=== PATIENT | male | born 1985 | race Caucasian/White ===

== ENCOUNTER 2020-05-16 16:51 | Emergency (ER) | payer SELFPAY ==
[2020-05-16 16:52] VITALS: BP 140/71; PULSE 95; RESP 17; TEMP 36.2; O2SAT 99; BMI 29.0
--- NOTE | 2020-05-16 17:42 | CT_ITS ---
STUDY: CT ABDOMEN AND PELVIS WITHOUT CONTRAST REASON FOR EXAM: Male, 34 years old. Left flank pain x 3 days, testicular pain. RADIATION DOSAGE (If Supplied By Facility): CTDIvol = ( 8.10 ) mGy, DLP = ( 475.58 ) mGycm TECHNIQUE: Transaxial images were obtained from the dome of the diaphragm to the symphysis pubis without oral contrast, and without intravenous contrast. Sagittal and coronal images were reconstructed. Individualized dose optimization techniques were used for this CT. COMPARISON: None. FINDINGS: The visualized lung bases are unremarkable. Normal liver. No intrahepatic biliary duct dilatation or liver mass. Normal gallbladder and extrahepatic biliary system. Normal spleen. Normal pancreas. Normal bilateral adrenal glands. Normal right kidney. Mild left hydronephrosis and hydroureter are present with a 4 mm stone seen in the proximal one third aspect of the left ureter and the mid abdominal region. No additional radiopaque stones are seen in either kidney. Normal visualized stomach. Normal small intestine. Normal colon. No bowel dilatation or obstruction. No free air or free fluid. The appendix is visualized and appears normal. Normal abdominal aorta. Normal inferior vena cava. Normal retroperitoneum. Normal urinary bladder. Normal abdominal wall. Normal osseous structures. CT/Abdomen/Pelvis without Cont IMPRESSION: 1. Mild left hydronephrosis and hydroureter are present with a 4 mm stone seen in the proximal one third aspect of the left ureter and the mid abdominal region. No additional radiopaque stones are seen in either kidney. Electronically Signed: Mat Aaron MD at 18:32 EST , Service support ,
--- NOTE | 2020-05-16 17:42 | ED.VIS.GI ---
History of Present Illness Chief Complaint: Flank Pain Informant: Patient - Abdominal Pain/Flank Pain Onset: Days - 3 Context: Sudden Onset Timing: Continuous, Waxes and wanes Quality: Aching Location: Left Flank Current Severity: Moderate Maximum Severity: Severe Worsened by: Nothing Relieved by: Nothing - Nausea/Vomiting/Emesis GI Symptom: Nausea. Negative for: Vomiting - Diarrhea/Melena/Hematochezia GI Symptom: Negative for: Diarrhea, Melena, Hematochezia Associated Symptoms: Negative for: Dysuria, Frequency, Hematuria, Urgency Narrative: Patient states 3 days ago started having mild to moderate pain in his testicles. That went away and now he has just been having pain in his left low back. No abdominal pain. No urinary symptoms. Some nausea, no vomiting. No fevers or chills. Nonpleuritic, no coughing or shortness of breath. Prior similar symptoms: Yes - But never diagnosed Recent Illness/Hospitalization: No Past Medical History - Allergies and Home Meds Allergies/Adverse Reactions: Allergies No Known Allergies Allergy (Verified 05/16/20 16:52) Primary Care Physician: Care Physician,No Primary [Primary Care Provider] - Past Medical History: None Surgical History: no surgical history Smoking Status: Current every day smoker Review of Systems General: Denies: Chills, Fever, Sweats Eyes: Denies: Visual changes - bilaterally, Diplopia ENT: Denies: Rhinorrhea, Sore throat Cardiovascular: Denies: Chest pain, Palpitations Respiratory: Denies: Dyspnea, Cough, Dyspnea on exertion Gastrointestinal: Reports: Nausea. Denies: Abdominal pain, Vomiting, Diarrhea, Melena, Hematochezia Genitourinary: Denies: Dysuria, Hematuria, Frequency Musculoskeletal: Reports: Back pain. Denies: Myalgias, Extremity Pain Skin: Denies: Rash, Wounds Neurological: Denies: Headache, Weakness, Numbness Physical Exam Vital Signs/Narrative: Vital Signs Temp Pulse Resp BP Pulse Ox 05/16/20 16:52 97.2 F L 95 17 140/71 H 99 Inital Vital Signs reviewed: Yes General: Well nourished, Well developed, No Acute Distress Head: Normocephalic, Atraumatic Eyes: Perrl, EOMI ENT: Moist mucous membranes, No rhinorrhea Neck: Supple, Nontender Cardiovascular: Regular rate, Regular rhythm, No murmurs. Negative for: Tachycardia Respiratory: No distress, CTA bilaterally, Chest nontender Abdomen: Soft, Nondistended, Normal bowel sounds, No masses, Tender - Mild left lower quadrant. Negative for: Guarding, Rebound tenderness, Pulsatile mass Back: Normal Inspection, - - Tender in upper lumbar paraspinal musculature on the left. Normal inspection, no rash.. Negative for: CVA tenderness, Spinal tenderness Extremities: Nontender, No edema Skin: Normal color, No rash Neurological: Alert, Oriented x3, Cranial nerves II-XII grossly intact, Normal Strength, Normal Sensation, Normal Gait Psychological: Normal affect, Normal Mood Diagnostic/Tx/Re-eval Impressions Abdomen/Pelvis CT 05/16/20 17:42 IMPRESSION: 1. Mild left hydronephrosis and hydroureter are present with a 4 mm stone seen in the proximal one third aspect of the left ureter and the mid abdominal region. No additional radiopaque stones are seen in either kidney. Electronically Signed: Mat Aaron MD at 18:32 EST , Service support , 05/16/20 17:42 Abdomen/Pelvis without Cont [CT] Stat Laboratory Results 05/16/20 17:47 Urine Color Yellow Urine Clarity Sl. Cloudy Urine pH 6.5 Ur Specific [place] 1.010 Urine Protein 30 H Urine Glucose (UA) Normal Urine Ketones 15 H Urine Occult Blood 250 H Urine Nitrite Negative Urine Bilirubin Negative Urine Urobilinogen 1 H Ur Leukocyte Esterase 25 H Urine RBC 10-25 SEEN Urine WBC 0-5 SEEN Ur Squamous Epith Cells 0-5 SEEN Urine Bacteria 0 SEEN Urine Mucus 0 SEEN - Medical Decision Making Patient refused blood test for anything that had to do with needles. Therefore he was given tramadol since he was not in a lot of pain at the time, and Zofran orally. He remained clinically and hemodynamically stable. Testing is consistent with a kidney stone in the left proximal ureter and no infection. Expectant management indicated given that it is 4 mm and likely to pass without needing surgical manipulation. We will give him urine strainers, analgesics, nausea medication, and reasons to return. ED Disposition - Plan for ED Patient: Disposition: Home or Assisted Living Diagnosis: Renal colic on left side, Ureterolithiasis Instructions: ED Renal Stone w Colic Prescriptions: Hydrocodone Bitart/Apap 5-325 [[place] 5MG-325MG] 1 tablet PO Q4H PRN PRN 2 Days #10 tablet PRN Reason: Pain Transmission Status: Sent to [facility] Ondansetron [Zofran Odt] 8 mg PO Q8H PRN PRN #14 tab PRN Reason: Nausea Transmission Status: Pending to [facility] Referrals: Luis Hernandez MD [STAFF PHYSICIAN] - 1-2 Weeks (If not improving or passing the stone)
[2020-05-16 17:54] LABS: Bacteria 0 SEEN /hpf (None Seen); Mucous, Urine 0 SEEN /hpf (<or=2+)
[2020-05-16 17:57] LABS: Color, Urine Yellow (Yellow); Glucose, Dipstick Normal (Normal); Ketone-Dipstick 15 mg/dl (Negative); Leukocyte Esterase-Dipstick 25 /ul (Negative); Nitrite-Dipstick Negative (Negative); Occult Blood-Urine 250 /ul (Negative); Protein-Dipstick 30 mg/dl (Negative); Urine Bilirubin Dipstick Negative (Negative); Urine Clarity Sl. Cloudy (Clear); Urine Urobilinogen 1 mg/dl (Normal); Urine pH 6.5 (5.0 - 8.0)
[2020-05-16] MEDS: traMADol 50 MG Tablet PO (18:00)
[2020-05-16] MEDS: Naproxen 250 MG Tablet 500 MG PO (18:00)
[2020-05-16] MEDS: Ondansetron ODT 4 MG Tablet 8 MG PO (18:00)
[2020-05-16 18:29] LABS: Red Blood Cells-Urine 10-25 SEEN /hpf (0-5); Squamous Epithelial Cells - UA 0-5 SEEN /hpf (0-5); White Blood Cells 0-5 SEEN /hpf (0-5)
[2020-05-16 19:27] VITALS: RESP 16
== END 2020-05-16 19:28 | disposition home or self-care (01) ==
PROVIDERS: Emergency Provider Emergency Medicine
DX: N13.2 Hydronephrosis with renal and ureteral calculous obstruction (principal); F17.200 Nicotine dependence, unspecified, uncomplicated
CPT/HCPCS: 74176; 81001; 99283; J2405

== ENCOUNTER 2020-06-05 18:23 | Emergency (ER) | payer SELFPAY ==
[2020-06-05 18:24] VITALS: BP 118/73; PULSE 96; RESP 16; TEMP 35.9; O2SAT 100; BMI 28.8
[2020-06-05 18:26] VITALS: BP 118/73; PULSE 101; RESP 18; TEMP 35.9; O2SAT 99
--- NOTE | 2020-06-05 18:40 | ED.DCSUM_ITS ---
History of Present Illness Chief Complaint: Flank Pain Informant: Patient Narrative: 34-year-old male presenting with left flank pain. He states it started yesterday. It is progressively worsened. He now has nausea/vomiting. Patient has history of multiple kidney stones in the past. He states the most of the time he passes then. He does not have a urologist or primary care physician. He is not had fever, chills. He does admit to hematuria Past Medical History - Allergies and Home Meds Allergies/Adverse Reactions: Allergies No Known Allergies Allergy (Verified 05/16/20 16:52) Primary Care Physician: Care Physician,No Primary [Primary Care Provider] - Prior records reviewed: Yes Past Medical History: - - Kidney stones Surgical History: no surgical history Lives: Alone Smoking Status: Current every day smoker Alcohol: None Drugs: None Review of Systems General: Denies: Chills, Fever, Sweats Eyes: Denies: Visual changes - bilaterally, Diplopia ENT: Denies: Rhinorrhea, Sore throat Cardiovascular: Denies: Chest pain, Palpitations Respiratory: Denies: Dyspnea, Cough, Dyspnea on exertion Gastrointestinal: Reports: Abdominal pain, Nausea, Vomiting Genitourinary: Reports: Dysuria, Hematuria Musculoskeletal: Reports: Back pain - Left flank pain. Denies: Extremity Pain Skin: Denies: Rash, Wounds Physical Exam Vital Signs/Narrative: Vital Signs Temp Pulse Resp BP Pulse Ox 06/05/20 18:26 96.6 F L 101 H 18 118/73 99 06/05/20 18:24 96.6 F L 96 16 118/73 100 Inital Vital Signs reviewed: Yes General: Well nourished, No Acute Distress Head: Normocephalic, Atraumatic Eyes: Perrl, EOMI ENT: Moist mucous membranes, No rhinorrhea Cardiovascular: Regular rate, Regular rhythm Respiratory: No distress, CTA bilaterally Abdomen: Soft, Nondistended Back: CVA tenderness - Left sided. Negative for: Spinal tenderness Skin: Normal color, No rash Neurological: Alert, Oriented x3 Psychological: Normal affect, Normal Mood Diagnostic/Tx/Re-eval Clinical Impression(s) from Imaging Studies Abdomen/Pelvis CT 06/05/20 18:40 IMPRESSION: Normal unenhanced CT of the abdomen and pelvis. Electronically Signed: Abelardo Rodgers DO at 19:32 EST Tel [phone], Service support , Laboratory Data 06/05/20 19:04 Urine Color Yellow Urine Clarity Clear Urine pH 7.0 Ur Specific [place] 1.005 Urine Protein Negative Urine Glucose (UA) Normal Urine Ketones Negative Urine Occult Blood 250 H Urine Nitrite Negative Urine Bilirubin Negative Urine Urobilinogen Normal Ur Leukocyte Esterase Negative Urine RBC 0-5 SEEN Urine WBC 0 SEEN Ur Squamous Epith Cells 0 SEEN Urine Bacteria RARE Urine Mucus 0 SEEN - Medical Decision Making Patient seen and evaluated on arrival for left flank pain. He states he had multiple kidney stones in the past and this feels similar. He also has hematuria. Patient refused IV access as he is afraid of needles. He states that he can wait for pain medication until the CT is done. He was given Zofran ODT. Patient was given oxycodone after CT was performed. He has hematuria and likely passed kidney stone as there is no stone seen on CT. Patient was given short of pain and nausea medication for his renal colic. He will be discharged home in stable condition. Impression: 1. Hematuria 2. Likely passed kidney stone ED Disposition - Plan for ED Patient: Disposition: Home or Assisted Living Instructions: ED Kidney Stone, Passed Prescriptions: Oxycodone HCl/Acetaminophen [Percocet 5/325] 1 tab PO Q6H PRN PRN 3 Days #12 tab PRN Reason: Pain Prescription Printed Ondansetron [Zofran Odt] 4 mg PO Q8H PRN PRN #10 tab PRN Reason: Nausea Prescription Printed Referrals: Care Physician,No Primary [Primary Care Provider] -
--- NOTE | 2020-06-05 18:40 | CT_ITS ---
STUDY: CT ABDOMEN AND PELVIS WITHOUT CONTRAST REASON FOR EXAM: Male, 34 years old. LEFT FLANK PAIN RADIATING TO FRONT WITH ABD PAIN AND HEMATURIA, HX [place] RADIATION DOSAGE (If Supplied By Facility): CTDIvol = ( 8.96 ) mGy, DLP = ( 483.42 ) mGycm TECHNIQUE: Transaxial images were obtained from the dome of the diaphragm to the symphysis pubis without oral contrast, and without intravenous contrast. Sagittal and coronal images were reconstructed. Individualized dose optimization techniques were used for this CT. COMPARISON: 05/16/2020. FINDINGS: The visualized lung bases are unremarkable. The visualized portions of the heart are within normal limits. Normal liver. Normal gallbladder and extrahepatic biliary system. Normal spleen. Normal pancreas. Normal bilateral adrenal glands. Normal right kidney. Normal left kidney. Normal visualized stomach. Normal small intestine. Normal colon. The appendix is visualized and appears normal. Normal abdominal aorta. Normal inferior vena cava. Normal retroperitoneum. Normal urinary bladder. Normal abdominal wall. Normal osseous structures. CT/Abdomen/Pelvis without Cont IMPRESSION: Normal unenhanced CT of the abdomen and pelvis. Electronically Signed: Abelardo Rodgers DO at 19:32 EST Tel [phone], Service support ,
[2020-06-05] MEDS: Ondansetron ODT 4 MG Tablet PO (18:45)
[2020-06-05 19:19] LABS: Mucous, Urine 0 SEEN /hpf (<or=2+); Squamous Epithelial Cells - UA 0 SEEN /hpf (0-5); White Blood Cells 0 SEEN /hpf (0-5)
[2020-06-05 19:30] LABS: Color, Urine Yellow (Yellow); Glucose, Dipstick Normal (Normal); Ketone-Dipstick Negative (Negative); Leukocyte Esterase-Dipstick Negative /ul (Negative); Nitrite-Dipstick Negative (Negative); Occult Blood-Urine 250 /ul (Negative); Protein-Dipstick Negative (Negative); Specific Gravity, Urine 1.005 (1.002-1.030); Urine Bilirubin Dipstick Negative (Negative); Urine Clarity Clear (Clear); Urine Urobilinogen Normal (Normal)
[2020-06-05 19:45] LABS: Bacteria RARE /hpf (None Seen); Red Blood Cells-Urine 0-5 SEEN /hpf (0-5)
[2020-06-05 21:02] VITALS: PULSE 79; RESP 16; O2SAT 98
[2020-06-05] MEDS: oxyCODONE 5 MG Tablet PO (21:02)
== END 2020-06-05 21:09 | disposition home or self-care (01) ==
PROVIDERS: Emergency Provider Student in an Organized Health Care Education/Training Program
DX: R31.9 Hematuria, unspecified (principal); R10.9 Unspecified abdominal pain; R11.2 Nausea with vomiting, unspecified; M54.9 Dorsalgia, unspecified; Z87.442 Personal history of urinary calculi; F17.200 Nicotine dependence, unspecified, uncomplicated
CPT/HCPCS: 74176; 81001; 99283

== ENCOUNTER 2020-10-20 08:01 | Emergency (ER) | payer SELFPAY ==
[2020-10-20 08:02] VITALS: BP 126/87; PULSE 115; RESP 16; TEMP 36.6; O2SAT 97; BMI 29.5
--- NOTE | 2020-10-20 08:09 | ED.DCSUM_ITS ---
History of Present Illness Chief Complaint: Laceration Informant: Patient Narrative: 35-year-old male presents with laceration to the volar surface of his right index finger. He was reaching for a knife in a drawer when he sustained a laceration. Unknown last tetanus. He states he is unable to flex the finger. He is right-hand dominant. Past Medical History - Allergies and Home Meds Allergies/Adverse Reactions: Allergies No Known Allergies Allergy (Verified 10/20/20 08:05) Surgical History: no surgical history Lives: Spouse/ Significant Other Smoking Status: Current every day smoker Alcohol: None Drugs: None Review of Systems General: Denies: Chills, Fever, Sweats Eyes: Denies: Visual changes - bilaterally, Diplopia ENT: Denies: Rhinorrhea, Sore throat Cardiovascular: Denies: Chest pain, Palpitations Respiratory: Denies: Dyspnea, Cough, Dyspnea on exertion Gastrointestinal: Denies: Abdominal pain, Nausea, Vomiting, Diarrhea, Melena, Hematochezia Genitourinary: Denies: Dysuria, Hematuria, Frequency Musculoskeletal: Denies: Back pain, Extremity Pain Skin: Reports: Wounds. Denies: Rash Neurological: Denies: Headache, Weakness, Numbness Physical Exam Vital Signs/Narrative: Vital Signs Temp Pulse Resp BP Pulse Ox 10/20/20 08:02 97.8 F 115 H 16 126/87 H 97 Inital Vital Signs reviewed: Yes General: Well nourished, Well developed, No Acute Distress Head: Normocephalic, Atraumatic Eyes: Perrl, EOMI ENT: Moist mucous membranes, No rhinorrhea Neck: Supple, Nontender Cardiovascular: Regular rate, Regular rhythm, No murmurs Respiratory: No distress, CTA bilaterally, Chest nontender Abdomen: Soft, Nontender, Nondistended, Normal bowel sounds Back: Nontender, Normal Inspection Extremities: - - There is a 3 cm linear laceration over the volar surface of the right index finger. He has severed the flexor tendons. Neurovascularly intact. No active bleeding Skin: Normal color, No rash Neurological: Alert, Oriented x3, Cranial nerves II-XII grossly intact, Normal Strength, Normal Sensation Psychological: Normal affect, Normal Mood Diagnostic/Tx/Re-eval - Medical Decision Making Patient's tetanus was updated. Wet-to-dry dressing applied. My interpretation of his x-rays is soft tissue laceration with no bony injury noted. We do not currently have hand surgery at the hospital. I spoke with [facility] and the patient has been accepted to the emergency room at their facility for hand consultation. Patient was advised of the plan and states he wants to leave and he will go glue his finger shot. Advised him that would be a poor decision given that he is right-hand dominant and he would most likely never be able to flex his finger again. He states he just wants me to sew it shot. I informed him that would involve needles he states that is unacceptable. I informed him that he might as well go to [facility] and get it cared for appropriately if he is going to have sutures regardless and he is amendable to going. He is requesting something for anxiety and we will give him some Ativan. ED Disposition - Plan for ED Patient: Disposition: [facility] Diagnosis: Flexor tendon laceration of finger with open wound
--- NOTE | 2020-10-20 08:15 | RAD_ITS ---
STUDY: X-RAY - RIGHT HAND, ATTENTION INDEX FINGER REASON FOR EXAM: Laceration of the right index finger, right index finger injury. TECHNIQUE: 3 view(s) of the finger were obtained. COMPARISON: None. FINDINGS: Normal metacarpal head. Normal metacarpophalangeal joint. Normal proximal phalanx. Normal middle phalanx. Normal distal phalanx. Normal proximal interphalangeal joint. Normal distal interphalangeal joint. There is a laceration palmar to the neck of the proximal phalanx. There is no demonstrated radiopaque foreign body. RAD/Finger(s) Min 2 Views IMPRESSION: Laceration of the right index finger. No demonstrated fracture. Electronically Signed: Chao Lopes MD at 8:50 EDT Tel , Service support ,
[2020-10-20] MEDS: Diphth,Pertuss(Acell),Tet Vac 0.5 ML Vial IM (08:18)
[2020-10-20] MEDS: LORazepam 1 MG Tablet PO (10:03)
[2020-10-20 10:23] VITALS: BP 133/85; PULSE 108; RESP 18; O2SAT 99
--- NOTE | 2020-10-20 10:38 | ED.RN ---
physicians eta 60 min
[2020-10-20] MEDS: Cefazolin 2 GM in 0.9% Normal Saline 100 ML IV (11:38)
[2020-10-20 11:39] VITALS: BP 125/86; PULSE 82; RESP 16; TEMP 36.5; O2SAT 99
--- NOTE | 2020-10-20 11:50 | ED.RN ---
report given to devulcanizer charger at [facility]
== END 2020-10-20 11:51 | disposition short-term general hospital (02) ==
PROVIDERS: Emergency Provider Emergency Medicine
DX: S66.120A Laceration of flexor muscle, fascia and tendon of right index finger at wrist and hand level, initial encounter (principal); W26.0XXA Contact with knife, initial encounter; Y93.9 Activity, unspecified; Y92.9 Unspecified place or not applicable; F17.200 Nicotine dependence, unspecified, uncomplicated
CPT/HCPCS: 73140; 90715; 96374; 99285; J7050; A4216

== ENCOUNTER 2022-11-21 15:14 | Emergency (ER) | payer SELFPAY ==
[2022-11-21 15:15] VITALS: BP 138/70; PULSE 78; RESP 14; TEMP 36.6; O2SAT 99; BMI 29.9
--- NOTE | 2022-11-21 15:37 | EDS_ITS ---
HPI History of Present Illness Chief Complaint: Head Injury Informant: patient Onset/Context/Timing Onset: Yesterday Mechanism/Context: Fall Quality of Pain: Sharp, Dull and Aching Location: Left parietal area Worsened by: Heart racing Relieved by: Nothing Associated Symptoms Associated Symptoms: Positive for Loss of consciousness (Questionable brief); Negative for Parasthesias, Weakness, Loss of function, Inability to ambulate or Amnesia Length of loss of consciousness: Less than 30 seconds Narrative Narrative: Patient presents with head injury that began after a fall yesterday. Patient states he slipped in the shower and fell. Patient hit the left side of his head. Patient states he broke a piece of his left lateral incisor off yesterday. Patient describes the pain as sharp, aching, and dull. Patient sta bailey his pain is worse when his heart starts racing. Patient is unsure if he had a brief episode of loss of consciousness. Patient denies any paresthesias or weakness. Patient denies any nausea or vomiting. Patient denies any other injuries. PFSH PFSH Medical History no medical history no medical history Home Medications NK 10/20/20 [History Last Taken Unknown] Allergy/AdvReac Type Severity Reaction Status Date / Time No Known Allergies Allergy Verified 11/21/22 15:17 Social History (Updated 11/21/22 @ 15:[address] Ace Lynn, DO) Smoking Status: Current every day smoker tobacco type: cigarettes alcohol intake: current substance use type: marijuana ROS ROS ED Constitutional Constitutional ED: Denies chills or fever(s) Eyes Eyes: Reports blurry vision; Denies change in vision ENT ENT ED: Denies rhinorrhea or sore throat Cardiovascular Cardiovascular: Denies chest pain or palpitations Respiratory/Chest Respiratory/Chest: Denies cough or dyspnea Gastrointestinal Gastrointestinal: Denies nausea or vomiting Genitourinary Genitourinary ED: Denies dysuria or hematuria Musculoskeletal Musculoskeletal: Denies back pain or neck pain Integumentary Denies abscess or rash Neurologic Neurologic: Reports headache(s); Denies weakness Allergic/Immunologic Allergic/Immunologic ED: Denies mouth swelling or urticaria EXAM Physical Exam Const Vital Signs: 11/21/22 15:15 11/21/22 15:54 Temperature 98 F Temperature Source Temporal Pulse Rate 78 Respiratory Rate 14 Respiratory Effort Normal Non-Labored Respiratory Depth Normal Respiratory Pattern Normal Blood Pressure 138/70 H Blood Pressure Mean 92 Pulse Ox 99 Oxygen Delivery Method Room Air Room Air Positive well nourished and well developed General Appearance ED: well developed and NAD HEENT HEENT Narrative: There is tenderness over the left parietal area. There is no edema or ecchymosis. There is no bony crepitance or step-off. There is a dental fracture of the left upper lateral incisor. There is no gingival edema noted. There is no bleeding noted. Oral mucosa is pink and moist. Oropharynx is clear. Airway is patent. Neck full ROM Neck Narrative: Neck is supple. Trachea is midline. There is no JVD or lymphadenopathy. There is no sublingual edema or anterior neck swelling. Neuro oriented x3, CN's II-XII intact bilaterally, moves all extremities, no focal motor deficits and no sensory deficits noted [place] Coma Scale: document GCS findings Spontaneous Obeys Commands Oriented 15 Sensorium / Orientation: alert Motor Exam: strength 5/5 throughout Psych mental status grossly normal and thought process normal Skin no rashes or lesions noted MDM MDM MDM Narrative Medical decision making narrative: Differential diagnosis includes concussion and intracranial bleeding. CT scan of the brain will be obtained to assess for intracranial bleeding. Radiography Diagnostic Testing: Clinical Impression(s) from Imaging Studies Brain CT 11/21/22 15:46 IMPRESSION: Normal unenhanced CT scan of the brain. Electronically Signed: Lupillo Mejia MD at 17:03 EDT , CT scan of the brain was obtained. There is no acute intracranial abnormality. This was interpreted by the radiologist and was also independently reviewed by myself. Treatment and Re-Evaluation Narrative: Patient was advised of his findings. Patient was advised that this is most likely a mild concussion. Patient was instructed to use Tylenol or ibuprofen as needed for pain. Patient was instructed to follow-up with his primary care physician and his dentist in 3 to 5 days. Patient understood and was agreeable with the plan. All questions were answered. Discharge Plan Triage Chief Complaint: Head Injury ED Provider: Ace Lynn Dx/Rx/DC Orders Clinical Impression: Concussion, Broken tooth-uncomplic Instructions: ED Concussion, ED Dental Trauma Prescriptions: No Action NK Stand Alone Forms: ED Work / School Excuse Primary Care Provider: Care Physician,No Primary Referrals: Sepideh Hinkle [Non-Staff] - 3-5 Days Care Physician,No Primary [Primary Care Provider] - Disposition Disposition: Home, Self Care
--- NOTE | 2022-11-21 15:46 | CT_ITS ---
STUDY: CT BRAIN WITHOUT CONTRAST REASON FOR EXAM: Male, 37 years old. Injury/Pain RADIATION DOSAGE (If Supplied By Facility): CTDIvol = ( 44.99 ) mGy, DLP = ( 745.49 ) mGycm TECHNIQUE: Transaxial CT imaging of the brain was performed without administration of intravenous contrast material. Individualized dose optimization techniques were used for this CT. COMPARISON: No relevant priors. FINDINGS: Normal soft tissue structures. Normal calvarium. Normal size ventricles and extra-axial spaces for the patient''s age. Normal white matter tracts of the cerebral hemispheres. Normal basal ganglia and thalami. Normal brainstem. Normal cerebellum. There is no intracranial hemorrhage. There are no findings of an acute ischemic infarction. Normal visualized paranasal sinuses. CT/Brain/Head without Contrast IMPRESSION: Normal unenhanced CT scan of the brain. Electronically Signed: Lupillo Mejia MD at 17:03 EDT ,
== END 2022-11-21 17:25 | disposition home or self-care (01) ==
PROVIDERS: Emergency Provider Emergency Medicine; Visit Provider Emergency Medicine
DX: S06.0X0A Concussion without loss of consciousness, initial encounter (principal); S02.5XXA Fracture of tooth (traumatic), initial encounter for closed fracture; F17.210 Nicotine dependence, cigarettes, uncomplicated; W01.198A Fall on same level from slipping, tripping and stumbling with subsequent striking against other object, initial encounter; Y93.E1 Activity, personal bathing and showering; Y92.89 Other specified places as the place of occurrence of the external cause
CPT/HCPCS: 70450; 99282